=== PATIENT | female | born 1990 | race African-American/Black ===

== ENCOUNTER 2021-03-05 12:35 | Emergency (ER) | payer OTHER ==
[~2021-03-05] VITALS: Ht 170.2 cm; Wt 70.3 kg
[~2021-03-05 12:35] MED LIST: BENTYL 20 MG TA20 M1 PO; ZOFRAN ODT4 MG PO
[2021-03-05 13:18] LABS: ABSOLUTE NEUTROPHILS 9.4 thou/uL (1.4-8.2); BASOPHILS 0.5 % (0.0-2.0); EOSINOPHILS 0.1 % (0.0-3.0); HEMATOCRIT 36.8 % (37.0-47.0); HEMOGLOBIN 12.7 gm/dL (12.0-15.0); LYMPHOCYTES 18.4 % (24.0-44.0); MCH 31.8 pg (26.0-34.0); MCHC 34.4 g/dL (28.0-37.0); MCV 92.3 fL (80.0-100.0); PLATELET COUNT 311 thou/uL (150-400); RBC 3.99 mil/uL (4.20-5.00); RDW 12.6 % (10.5-14.5); WBC 12.5 thou/uL (4.0-11.0)
[2021-03-05 13:26] LABS: CALCIUM 8.7 mg/dL (8.5-10.1); CREATININE 0.8 mg/dL (0.6-1.0); POTASSIUM 3.1 mmol/L (3.5-5.1)
[2021-03-05 13:34] LABS: TOTAL BILIRUBIN 0.7 mg/dL (0.2-1.0); TOTAL PROTEIN 8.1 g/dL (6.4-8.2)
[2021-03-05] MEDS ORDERED: PHENERGAN 25 MG25 M1 PO (15:04)
[2021-03-05] MEDS ORDERED: LEVSIN0.125 MG PO (15:04)
[2021-03-05] MEDS ORDERED: POTASSIUM20 PO (15:09)
[2021-03-05 15:13] VITALS: BP 119/78
== END 2021-03-05 15:14 | disposition home or self-care (01) ==
LOC: ER 12:35
PROVIDERS: Physician Assistant
DX: R10.84 Generalized abdominal pain (principal); R11.2 Nausea with vomiting, unspecified; E87.6 Hypokalemia; F12.90 Cannabis use, unspecified, uncomplicated; Z79.899 Other long term (current) drug therapy